=== PATIENT | male | born 1995 | race Two or more races ===

== ENCOUNTER 2019-04-17 21:04 | Emergency (ER) | payer OTHER, SELFPAY ==
[2019-04-17 21:05] VITALS: BP 133/80; PULSE 81; RESP 15; TEMP 36.8; BMI 29.1
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
[2019-04-18 00:26] VITALS: BP 146/90; PULSE 68; RESP 16; O2SAT 100
[2019-04-18 00:38] VITALS: BP 134/67
[2019-04-18] MEDS: Naproxen 500 MG Tablet PO (00:38)
== END 2019-04-18 00:39 | disposition home or self-care (01) ==
LOC: ED 22:52
PROVIDERS: Emergency Provider Emergency Medicine
DX: S29.012A Strain of muscle and tendon of back wall of thorax, initial encounter (principal); S39.012A Strain of muscle, fascia and tendon of lower back, initial encounter; S00.83XA Contusion of other part of head, initial encounter; S40.011A Contusion of right shoulder, initial encounter; V68.6XXA Passenger in heavy transport vehicle injured in noncollision transport accident in traffic accident, initial encounter; Y93.9 Activity, unspecified; Y99.0 Civilian activity done for income or pay
CPT/HCPCS: 70450; 70486; 72072; 72100; 72125; 99283